=== PATIENT | female | born 1955 | race Caucasian/White ===

== ENCOUNTER 2016-11-19 13:05 | Day surgery (SDC) | payer MEDICARE ==
[~2016-11-19] VITALS: Ht 167.6 cm; Wt 91.6 kg
[~2016-11-19 13:05] MED LIST: ALBU8.5H2 INHALATION; BUDE90AE IH; CALC-952 PO; CALC625T83 PO; ESOM40CA41 PO; FUR20 PO; GLIM2TAB2 PO; LISI2.5T PO; LORA1TAB PO; METF-495 PO; MULT1CAP33 PO; MYCO500T3 PO; N-Acetyl-L-Cysteine; OMEG1CAP25 PO; PROM5SYR PO; SIMV20TA4 PO; SPIR25TA3 PO; Sodium Chloride LOK Flush 10 mL Syringe IV PRN; VIT1TABL83 PO; [UNRECOGNIZED DRUG - OTHER] PO; [UNRECOGNIZED DRUG - SUPPLY]; fentaNYL-PF 50 mCg/mL 2 mL Inj IVPUSH PRN
[2016-11-19 13:36] VITALS: BP 140/66; PULSE 87; RESP 16; O2SAT 100
[2016-11-19] MEDS: 0.9% Sodium Chloride 1,000 ML IV SCH ×4 (13:42→15:20)
[2016-11-19 15:27] VITALS: BP 121/66; PULSE 78; RESP 14; O2SAT 99
[2016-11-19 15:37] VITALS: BP 117/58; PULSE 80; RESP 16; O2SAT 100
[2016-11-19 15:40] VITALS: BP 105/55; PULSE 79; RESP 16; O2SAT 100
--- NOTE | 2016-11-19 23:52 | ENDO ---
[address] [address] ENDOSCOPY PROCEDURE PATIENT: LIONEL AMOR : 1955 MR#: [id number] ADMIT: 11/19/2016 JOB ID: [id number] DATE OF SERVICE: 11/19/2016 PRIMARY PROVIDER: BRODIE Baker PROCEDURE: 1. Colonoscopy. 2. Hot snare polypectomy injection. 3. APC ablation. INDICATIONS: A 61-year-old female with a subtle flat polyp around the hepatic flexure in need of attempt at completion polypectomy. EQUIPMENT: PCF H 180 AL. SEDATION: 5 mg Versed and 100 mcg fentanyl. COMPLICATIONS: None identified. BOWEL PREPARATION: Fair, adequate exam. PROCEDURE IN DETAIL: After the risks and benefits were explained, written and verbal informed consent was obtained. The patient was brought into the endoscopy suite and placed into the left lateral decubitus position. Sedation was achieved using the above-stated medications with the addition of oxygen via nasal cannula. A digital rectal examination was accomplished. No significant pathology appreciated. The scope was introduced into the rectum and advanced to the cecum as identified by the appendiceal orifice and ileocecal valve. The scope was slowly withdrawn to carefully examine the mucosa for any defects or lesions. Multiple direct views were made through the dentate line for exclusion of pathology. The colon was decompressed. The scope removed the patient who tolerated the procedure well. FINDINGS: There were two tattoos identified at today's exam. One in the ascending colon proper and no residual polypoid material was seen near this. The 2nd at the hepatic flexure was easily identified and, again, there was a very subtle abnormal appearance to the mucosa at this location. I could see where I had taken a prior biopsy that turned out positive for adenoma. This seemed like a superficial spreading-type of a polyp that looked like it was perhaps 5-6 mm x about 12-13 mm. We injected with 7 cc of saline. Not all of this went in the submucosal location. We got a little bit of lift and attempted hot snare polypectomy with the Jumbo snare. We were only able to secure a couple of fragments from either end of the polyp. The middle of the polyp did not come up with the snare. I swapped out for the hexagonal snare and we actually were able to remove the majority of the middle portion of the polyp with this. I then used right colon settings and a straight APC probe to ablate the residual adenomatous-appearing mucosa. Photographs were taken. There was one other small, perhaps 6 mm, polyp in the transverse colon removed with the hot snare. This was submitted separately. No other significant pathology appreciated. ENDOSCOPIC DIAGNOSES: 1. Colon polyps. 2. Internal hemorrhoids. RECOMMENDATIONS: 1. Await histopathology. 2. Repeat colonoscopy in six months' time to ensure all of this has indeed been completely excised/ablated.
--- NOTE | 2016-11-21 13:55 | PATH ---
SURGICAL PATHOLOGY Attending Physician:Marilee Hannon CASE STATUS: Signed Out PATIENT NAME: LIONEL AMOR PID: [id number] : 1955 DATE COLLECTED:11/19/2016 00:00 SPECIMEN: 1: Colon, Biopsy 2: Colon, Biopsy CLINICAL HISTORY: 1. HEPATIC FLEXURE POLYP 2. 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 2.TRANSVERSE COLON POLYP: TUBULAR ADENOMA INVOLVING BOTH BIOPSY FRAGMENTS. ICD10 D12.3 GROSS DESCRIPTION: The specimen is received in two formalin filled containers labeled with the patient's name. 1). The specimen is sublabeled "hepatic flexure polyp" and consists of multiple portions of tissue which aggregate to 0.3 x 0.3 x 0.2 CM. The specimen is entirely submitted in cassettes 1A. 2). The specimen is sublabeled "transverse colon polyp" and consists of 2 portions of tissue impossible debris which aggregate to 0.5 x 0.5 x 0.4 CM. The specimen is entirely submitted in cassette 2A. 11/20/2016 [facility] MICRO DESCRIPTION: See diagnosis. ICD-9 CODES: CPT CODES: 1: 52315 2: 76722 Electronically Signed Out Torres Jane MD [facility] [address], [place] [address] Technical component performed at [facility], [address] [place] [address] Ave[address], [place], [address]
== END 2016-11-19 23:59 | disposition home or self-care (01) ==
LOC: END 13:05
PROVIDERS: ATTEND Internal Medicine Gastroenterology
DX: D12.2 Benign neoplasm of ascending colon (principal); D12.3 Benign neoplasm of transverse colon; K64.8 Other hemorrhoids; Z86.010 Personal history of colon polyps; G47.33 Obstructive sleep apnea (adult) (pediatric); E11.9 Type 2 diabetes mellitus without complications; I11.0 Hypertensive heart disease with heart failure; E78.5 Hyperlipidemia, unspecified; I50.9 Heart failure, unspecified; M34.9 Systemic sclerosis, unspecified; E66.9 Obesity, unspecified; Z95.5 Presence of coronary angioplasty implant and graft; Z79.84 Long term (current) use of oral hypoglycemic drugs; Z79.51 Long term (current) use of inhaled steroids
CPT/HCPCS: 45381; 45385; 99153; G0500; J7030